=== PATIENT | female | born 2000 | race African-American/Black ===

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

== ENCOUNTER 2025-03-15 17:22 | Observation (INO) | payer BC, SELFPAY ==
[2025-03-15] VITALS (18 sets, daily range): BP systolic 117–137; BP diastolic 65–90; PULSE 97–115; RESP 9–27; TEMP 36.2–37.1; O2SAT 98–100
--- OUTSIDE RECORDS SUMMARY | 2025-03-15 17:25 | XMS_ITS | Encounter Summary ---
Author Organization [facility] Address [address] [place] [address] Care Team Providers Care Railway Station Manager Name Role Phone Pcp Outside [facility], Unknown Primary Care Provider U Beatriz Lr MD Unavailable Mini Siegel DO Primary Care Provider [phone] Encounter Details Date Type Department Care Team (Late st Contact Info) Description 11/19/2020 Mobile [facility] [address] [place] [phone] Beatriz Gill MD [address] [place] [address] Social History Tobacco Use Types Packs/Day Years Used Date Smoking Tobacco: Never Smokeless Tobacco: Never PHQ-2 Answer Date Recorded PHQ-2 Score 0 05/27/2020 Inadequate Housing Answer Date Recorded Social Determinants: Housing (Overall Score Help er) 0 07/10/2019 Comments Unknown Sex and Gender Information Value Date Recorded Sex Assigned at Not on file Legal Sex Female 8:27 PM CDT Gender Identity Not on file Sexual Orientation Not on file COVID-19 Exposure Response Date Recorded In the last month, have you been in contact with someone who was confirmed or suspected to have Coronavirus / COVID-19? No / Unsure 11/19/2020 12:59 AM PERLITE GRINDER documented as of this encounter Miscellaneous Notes * Progress Notes - Mobile - Beatriz Gill MD - 11/19/2020 12:12 AM CST Epic page received regarding patient???s hemoglobin of 6.6. Patient was seen in office today for menorrhagia. Called mom to discuss and recommended going to ED for transfusion. Mom agreeable. ITE GRINDER documented in this encounter Plan of Treatment Upcoming Encounters Date Type Department Care Team (Late st Contact Info) Description 05/13/2025 12:40 PM CDT Office Visit [facility] [address] [place] [address] Mini Siegel DO [address] [place] [address] 06/12/2025 11:00 AM CDT Office Visit [facility] [place] [address] [place] [address] [place] [address] [address] documented as of this encounter Visit Diagnoses Not on filedocumented in this encounter Care Teams Railway Station Manager Relationship Specialty Start Date End Date Pcp Outside [facility], Unknown NO KNOWN ADDRESS ON FILE PCP - General 11/19/20 06/29/22 Mini Siegel DO [address] [place] [address] PCP - General Family Practice 06/30/22 Beatriz Gill MD [address] [place] [address] Family Practice 11/15/21 03/30/22 documented as of this encounter
--- OUTSIDE RECORDS SUMMARY | 2025-03-15 17:25 | XMS_ITS | Encounter Summary ---
Author Organization [facility] Address [address] [place] [address] Care Team Providers Care Brake Coupler Dinkey Name Role Phone Mini Siegel Primary Care Provider [phone] Encounter Details Date Type Department Care Team (Late st Contact Info) Description 05/18/2023 E-Advice [facility] [address] [place] [address] Mychart, Patient Portal lab results Social History Tobacco Use Types Packs/Day Years Used Date Smoking Tobacco: Never Smokeless Tobacco: Never Alcohol Use Standard Drinks/Week Comments Never 0 (1 standard drink = 0.6 oz pur e alcohol) PHQ-2 Answer Date Recorded Initial depression screening score: 0 05/16/2023 Exercise Vital Sign Answer Date Recorde d On average, how many days pe r week do you engage in moderate to strenuous exercise (like a brisk walk)? 0 days 01/27/2021 On average, how many minutes do you engage in exercise at this level? 0 min 01/27/2021 PRAPARE - Transportation Answer Date Re corded In the past 12 months, has l ack of transportation kept you from medical appointments or from getting medications? No 01/2021 In the past 12 months, has l ack of transportation kept you from meetings, work, or from getting things needed for daily living? No 01/27/2021 Inadequate Housing Answer Date Recorded Social Determinants: Housing (Overall Score Help er) 0 07/10/2019 Sexually Active Control Partners Comments Never None Comments No Sex and Gender Information Value Date Recorded Sex Assigned at Not on file Legal Sex Female 8:27 PM CDT Gender Identity Not on file Sexual Orientation Not on file documented as of this encounter Plan of Treatment Upcoming Encounters Date Type Department Care Team (Late st Contact Info) Description 05/13/2025 12:40 PM CDT Office Visit [facility] [address] [place] [phone] Mini Siegel DO [address] [place] [address] 06/12/2025 11:00 AM CDT Office Visit [facility] [place] [address] [place] [phone] [place] [address] [place] [address] documented as of this encounter Visit Diagnoses Not on filedocumented in this encounter Care Teams Brake Coupler Dinkey Relationship Specialty Start Date End Date Mini Siegel DO [address] [place] [address] PCP - General Family Practice 06/30/22 documented as of this encounter
--- OUTSIDE RECORDS SUMMARY | 2025-03-15 17:25 | XMS_ITS | Encounter Summary ---
Author Organization [facility] Address [address] [place] [address] Care Team Providers Care Canal Tender Name Role Phone Mini Siegel Primary Care Provider [phone] Encounter Details Date Type Department Care Team (Late st Contact Info) Description 05/25/2023 E-Advice [facility] [address] [address] [email or web address], Patient Portal Xray result Social History Tobacco Use Types Packs/Day Years [...] PM CDT Office Visit [facility] [address] [place] [phone] Mini Siegel DO [address] [place] [address] 06/12/2025 11:00 AM CDT Office Visit [facility] [place] [address] [place] [phone] [place] [address] [place] [address] documented as of this encounter Visit Diagnoses Not on filedocumented in this encounter Care Teams Canal Tender Relationship Specialty Start Date End Date Mini Siegel DO [address] [place] [address] PCP - General Family Practice 06/30/22 documented as of this encounter
--- OUTSIDE RECORDS SUMMARY | 2025-03-15 17:25 | XMS_ITS | Referral Summary ---
Author Organization [facility] Address [address] [place] [address] Care Team Providers Care Board Certified Family Physician Name Role Phone Mini Siegel Primary Care Provider [phone] Allergies No known active allergies Medications Ferrous Sulfate (Iron) 325 (65 Fe) MG Tab Active Active Problems Problem Noted Date Diagnosed Date Dysuria 11/15/2021 Acanthosis nigricans 11/15/2021 Immunity status testing 04/28/2021 Assessment & Plan (04/28/2021 4:15 PM CDT): - unknown if she received her second MMRV, will obtain immunity status, If not immune then we will give her a second MMRV Iron deficiency anemia due to chronic blood loss 01/11/2021 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 Iron deficiency anemia 12/29/2020 Assessment & Plan (12/29/2020 10:14 AM PAINT LINE PRODUCTION SUPERVISOR): - continue iron supplementation - will recheck levels today Menorrhagia with irregular cycle 11/18/2020 Assessment & Plan (12/29/2020 10:15 AM PAINT LINE PRODUCTION SUPERVISOR): - discussed starting provera/OCP, however, with FHX of blood clots will hold off until seen by heme Assessment & Plan (11/18/2020 1:51 PM PAINT LINE PRODUCTION SUPERVISOR): - only two abnormal periods, however, will obtain blood work as patient will need blood drawn for CBC and iron labs - mom with h/o lupus leading to DVT and PE, will obtain anticoagulants and obtain VWF panel given heavy periods and easy bleeding - follow up in 1 months after next period, if menorrhagia continues, will consider starting provera - Medical compliance with plan discussed and risks of non-compliance reviewed. Patient education completed on disease process, etiology & prognosis. Return to clinic as clinically indicated (worsening or new symptoms) as discussed with patient who verbalized understanding of & agreement with the plan Family history of blood clots 11/18/2020 Assessment & Plan (11/18/2020 1:51 PM PAINT LINE PRODUCTION SUPERVISOR): - Medical compliance with plan discussed and risks of non-compliance reviewed. Patient education completed on disease process, etiology & prognosis. Return to clinic as clinically indicated (worsening or new symptoms) as discussed with patient who verbalized understanding of & agreement with the plan Immunizations Immunization Administration Dates Next Due COVNodejitsu 12Y+ (Requires Dilution) 03/26/2021 ,03/05/2021 DTaP 11/07/2003, 3,04/29/2003,02/25 HIB Hep B 10/29/2003,10/17/2003 HIB, Unspecified Formulation 08/08/2003,06/09/20 03,03/27/2003 HPV 9-Valent 11/15/2021,07/09/2021,04/28/2021 Hep B, adolescent or pediatric 06/09/2003,2002 IPV 08/08/2003,04/29/2003,02/25/2003 MMR 01/17/2004 Meningococcal Conjugate MCV4O 04/28/2021 Meningococcal Conjugate MCV4 P (Menactra) 06/17/2014 Pneumococcal Conjugate 7 Valent 11/07/20 03,10/28/2003,10/17/2003,08/08 Tdap 06/17/2014 Varicella 12/16/2003 Social History Tobacco Use Types Packs/Day Years Used Date Smoking Tobacco: Never Smokeless Tobacco: Never Tobacco Cessation:Counseling Given: Not Answered Alcohol Use Standard Drinks/Week Comments Never 0 (1 standard drink = 0.6 oz pur e alcohol) PHQ-2 Answer Date Recorded Initial depression screening score: 0 07/08/2024 Exercise Vital Sign Answer Date Recorde d [...] on file Sexual Orientation Not on file Last Filed Vital Signs Vital Sign Reading Time Taken Comments Blood Pressure 113/77 08/02/2024 3:00 PM CDT Pulse 93 08/02/2024 3:00 PM CDT Temperature 37.1 C (98.8 F) 08/02/2024 3:00 PM CDT Respiratory Rate 16 08/02/2024 3:00 PM CDT Oxygen Saturation 100% 08/02/2024 3:00 PM CDT Inhaled Oxygen Concentration - - Weight 79.1 kg (174 lb 6.1 oz) 07/22/2023 7:00 A M CDT Height 152.4 cm (5') 06/27/2023 3:00 PM CDT Body Mass Index - - Plan of Treatment Upcoming Encounters Date Type Department Care Team (Late st Contact Info) Description 05/13/2025 12:40 PM CDT Office Visit [facility] [address] [place] [phone] Mini Siegel DO [address] [place] [address] 06/12/2025 11:00 AM CDT Office Visit [facility] [place] [address] [place] [phone] [place] [address] [place] [address] Procedures Procedure Name Priority Date/Time Associated Diagnosis Comments CHLAMYDIA/GONORRHEA BY NUCLEIC ACID AMPLIFICATION Routine 05/16/2023 12:50 PM CDT Routine screening for STI (sexually transmitted infection) from Last 3 Months or Most Recently Relevant to Health Maintenance Results * Chlamydia/Gonorrhea by Nucleic Acid Amplification (05/16/2023 12:50 PM CDT) Chlamydia trachomatis by Nucleic Acid Amplification Negative Negative [facility] 05/17/2023 6:41 PM CDT [facility] Neisseria gonorrhoeae by Nucleic Acid Amplification Negative Negative [facility] 05/17/2023 6:41 PM CDT [facility] Disclaimer The expected normal reference range is negative. Positive results are reported to the [facility] Department of Public Health. The Aptima Combo 2 Assay is not intended for the evaluation of suspected sexual abuse or for other medico-legal indications, nor has it been evaluated in adolescents less than 14 years of age. In these scenarios, and in clinical settings where the prevalence of infection is low, confirmatory testing on positive results is recommended. [facility] 05/17/2023 6:41 PM CDT [facility] Urine URINE SPECIMEN / Unknown 05/16/2023 12:50 PM CDT 05/16/2023 10:51 PM CDT us Claritza Urbano CNP [facility] DIAGN ORD Fin al Result [facility] [address] [place] [address] from Last 3 Months or Most Recently Relevant to Health Maintenance Insurance [id number] [place] [address] [employer] Care Teams Board Certified Family Physician Relationship Specialty Start Date End Date Mini Siegel DO [address] [place] [address] PCP - General Family Practice 06/30/22
--- OUTSIDE RECORDS SUMMARY | 2025-03-15 17:25 | XMS_ITS | Encounter Summary ---
Author Organization [facility] Address [address] [place] [address] Care Team Providers Care Director Of Conservation Name Role Phone Pcp, No Primary Care Provider Barby Alexander MD Primary Care Provider [phone] Pcp Outside [facility], Unknown Primary Care Provider Beatriz Neri MD Unavailable Mini Siegel DO Primary Care Provider [phone] Encounter Details Date Type Department Care Team (Late Contact Info) Description 05/25/2020 Telephone [facility] [address] [place] [address] Group, [facility] [address] [place] [address] Social History Tobacco Use Types Packs/Day Years Used Date Smoking Tobacco: Never Assessed PHQ-2 Answer Date Recorded PHQ-2 Score 0 [...] Encounters Date Type Department Care Team (Late Contact Info) Description 05/13/2025 12:40 PM CDT Office Visit [facility] [address] [place] [address] Mini Siegel DO [address] [place] [address] 06/12/2025 11:00 AM CDT Office Visit [facility] [place] [address] [place] [address] [place] [address] [place] [address] documented as of this encounter Visit Diagnoses Not on filedocumented in this encounter Care Teams Director Of Conservation Relationship Specialty Start Date End Date Pcp, No PCP - General 05/27/20 11/15/20 Barby Manrique MD [address] [place] [address] PCP - General Pediatrics 11/16/20 11/18/20 Pcp Outside [facility], Unknown NO KNOWN ADDRESS ON FILE PCP - General 11/19/20 06/29/22 Mini Siegel DO [address] [place] [address] PCP - General Family Practice 06/30/22 Beatriz Gill MD [address] [place] [address] Family Practice 11/15/21 03/30/22 documented as of this encounter
--- OUTSIDE RECORDS SUMMARY | 2025-03-15 17:25 | XMS_ITS | Clinical Summary ---
Author Organization [facility] Address [address] [place] [address] Care Team Providers Care Manager Title Name Role Phone Unavailable Primary Care Provider Unavailabl e Social History Tobacco Use Types Packs/Day Years Used Date Smoking Tobacco: Never Assessed Comments Unknown Sex and Gender Information Value Date Recorded Sex Assigned at Not on file Legal Sex Female 4:24 PM NITRO MAN Gender Identity Not on file Sexual Orientation Not on file Plan of Treatment Health Maintenance Due Date Last Done Comments CERVICAL CANCER SCREENING 2002 HEPATITIS C SCREENING 2002 TDAP/TD VACCINE (1 - Tdap) 2013 DEPRESSION SCREENING 2014 HIV SCREENING 2017 HPV VACCINE (1 - 3-dose series) 2017 COVID-19 VACCINE (3 - 2023-2 5 season) 2024 03/26/2021, 03/05/2021 INFLUENZA VACCINE (Season Ended) 2025 ZOSTER SERIES VACCINE (1 of 2) 2052 Adult RSV VACCINE (1 - 1-dos e 75+ series) 2077 Pneumococcal Vaccine: Childhood and At-Risk Adult <65 yo Series Aged Out No longer eligible b ased on patient's age to complete this topic
--- OUTSIDE RECORDS SUMMARY | 2025-03-15 17:25 | XMS_ITS | Clinical Summary ---
Author Organization [facility] Address [address] [place] [address] Care Team Providers Care Grinding Machine Operator Automatic Name Role Phone Mini Siegel Primary Care Provider [phone] Allergies No known active allergies Medications Ferrous [...] 12/29/2020 Assessment & Plan (12/29/2020 10:13 AM SUPERVISOR ASPHALT PAVING): - will send patient to heme/onc given fhx, menorrhagia, and FREDIS - red flags discussed, patient and mom express understanding. Iron deficiency anemia 12/29/2020 Assessment & Plan (12/29/2020 10:14 AM SUPERVISOR ASPHALT PAVING): - continue iron supplementation - will recheck levels today Menorrhagia with irregular cycle 11/18/2020 Assessment & Plan (12/29/2020 10:15 AM SUPERVISOR ASPHALT PAVING): - discussed starting provera/OCP, however, with FHX of blood clots will hold off until seen by heme Assessment & Plan (11/18/2020 1:51 PM SUPERVISOR ASPHALT PAVING): - only two abnormal periods, however, will [...] 11/18/2020 Assessment & Plan (11/18/2020 1:51 PM SUPERVISOR ASPHALT PAVING): - Medical compliance with plan discussed and risks of non-compliance reviewed. Patient education completed on disease process, etiology & prognosis. Return to clinic as clinically indicated (worsening or new symptoms) as discussed with patient who verbalized understanding of & agreement with the plan Immunizations Immunization Administration Dates Next Due COVSimulation Sciences 12Y+ (Requires Dilution) 03/26/2021 ,03/05/2021 DTaP 11/07/2003, 3,04/29/2003,02/25 HIB Hep B 10/29/2003,10/17/2003 HIB, Unspecified Formulation 08/08/2003,06/09/20 03,03/27/2003 HPV 9-Valent 11/15/2021,07/09/2021,04/28/2021 Hep B, adolescent or pediatric 06/09/2003,2002 IPV 08/08/2003,04/29/2003,02/25/2003 MMR 01/17/2004 Meningococcal Conjugate MCV4O 04/28/2021 Meningococcal Conjugate MCV4 P (Menactra) 06/17/2014 Pneumococcal Conjugate 7 Valent 11/07/20 03,10/28/2003,10/17/2003,08/08 Tdap 06/17/2014 Varicella 12/16/2003 Surgical History Surgery Date Site/Laterality Comments NO PAST SURGERIES Medical History Medical History Date Comments Iron deficiency anemia Blood transfusion without reported diagnosis Family History Medical History Relation Comments Patient is unaware of any medical problems Fathe r Clotting Disorder Mother Systemic Lupus Erythematosus Mother Relation Status Comments Father Mother Social History Tobacco Use Types Packs/Day Years [...] on file Sexual Orientation Not on file Obstetrics History Para Term AB IAB SAB Ectopic Molar Multiple Living Live Births 0 0 0 0 0 0 0 0 0 0 0 0 Last Filed Vital Signs Vital Sign Reading [...] PM CDT Office Visit [facility] [place] [address] [place] [phone] Mini Siegel DO [address] [place] [address] 06/12/2025 11:00 AM CDT Office Visit [facility] [place] [address] [place] [address] [place] [address] [place], [place] [address] Health Maintenance Due Date Last Done Comments Meningococcal Serogroup B Vaccine (1 of 2 - Standard) 2018 Cervical Cancer Screening 2023 Pap Smear 2023 Chlamydia and Gonorrhea Screening (if sexually active) 05/16/2024 05/16/2023, 11/15/2021 DTaP/Tdap/Td Vaccine (5 - Td or Tdap) 06/17/2024 06/17/2014, 11/07/2003, 08/08/2003, Additional history exists COVID-19 Vaccine ( season) 2024 03/26/2021, 03/05/2021 Depression Screening 07/08/2025 07/08/2024 Influenza Vaccine (Season Ended) 2025 Hepatitis B Vaccine Completed 10/29/2003, 10/17/2003, 06/09/2003, Additional history exists Pneumococcal Vaccine 0-49 Aged Out 2002, 10/28/2003, 10/17/2003, Additional history exists No longer eligible based on patient's age to complete this topic Meningococcal Vaccine Completed 04/28/2021, 014 HPV Vaccine Completed 11/15/2021, 06/27, 04/28/2021 Hepatitis A Vaccine Aged Out No longe r eligible based on patient's age to complete this topic Procedures Procedure Name Priority Date/Time Associated Diagnosis [...] 6:41 PM CDT [place] [facility] Disclaimer The expected normal reference range is negative. Positive results are reported to the [facility] Department of Public Health. The Aptima Combo [...] al Result ACL [place] [facility] [address] [place] [address] from Last 3 Months or Most Recently Relevant to Health Maintenance Insurance [employer]ER[employer] Care Teams Grinding Machine Operator Automatic Relationship Specialty Start Date End Date Mini Siegel DO [address] [place] [address] PCP - General Family Practice 06/30/22
--- NOTE | 2025-03-15 18:50 | PC.NURSE ---
Patient states she had her regular period at the end of december and stopped bleeding but a few days later started bleeding again and it has been ongoing since.
--- OUTSIDE RECORDS SUMMARY | 2025-03-15 19:45 | XMS_ITS | Referral Summary ---
Author Organization [facility] Address [address] [place] [address] Care Team Providers Care Associate Veterinarian Name Role Phone Mini Siegel Primary Care Provider [phone] Allergies No known active allergies Medications Ferrous [...] 12/29/2020 Assessment & Plan (12/29/2020 10:13 AM CIVIL ENGINEER HELPER): - will send patient to heme/onc given fhx, menorrhagia, and FREDIS - red flags discussed, patient and mom express understanding. Iron deficiency anemia 12/29/2020 Assessment & Plan (12/29/2020 10:14 AM CIVIL ENGINEER HELPER): - continue iron supplementation - will recheck levels today Menorrhagia with irregular cycle 11/18/2020 Assessment & Plan (12/29/2020 10:15 AM CIVIL ENGINEER HELPER): - discussed starting provera/OCP, however, with FHX of blood clots will hold off until seen by heme Assessment & Plan (11/18/2020 1:51 PM CIVIL ENGINEER HELPER): - only two abnormal periods, however, will [...] 11/18/2020 Assessment & Plan (11/18/2020 1:51 PM CIVIL ENGINEER HELPER): - Medical compliance with plan discussed and risks of non-compliance reviewed. Patient education completed on disease process, etiology & prognosis. Return to clinic as clinically indicated (worsening or new symptoms) as discussed with patient who verbalized understanding of & agreement with the plan Immunizations Immunization Administration Dates Next Due COVAccelerate Mobile Apps 12Y+ (Requires Dilution) 03/26/2021 ,03/05/2021 DTaP 11/07/2003, [...] PM CDT Office Visit [facility] [place] [address] [place] [phone] Mini Siegel DO [address] [place] [address] 06/12/2025 11:00 AM CDT Office Visit [facility] [place] [address] [place] [phone] [place] [address] [place] [address] Procedures Procedure Name Priority Date/Time Associated Diagnosis [...] - PNTH4 05/17/2023 6:[address] CENTRAL LAB Disclaimer The expected normal reference range is negative. Positive results are reported to the [facility] Department of Public Health. The Aptima Combo [...] al Result ACL [place] [facility] [address] [place] [address] from Last 3 Months or Most Recently Relevant to Health Maintenance Insurance [id number] [place] [address] Jugo Jugo Care Teams Associate Veterinarian Relationship Specialty Start Date End Date Mini Siegel DO [address] [place] [address] PCP - General Family Practice 06/30/22
--- OUTSIDE RECORDS SUMMARY | 2025-03-15 19:45 | XMS_ITS | Encounter Summary ---
Author Organization [facility] Address [address] [place] [address] Care Team Providers Care Equal Opportunity Officer Name Role Phone Pcp Outside [facility], Unknown Primary Care Provider U Beatriz Lr MD Unavailable Mini Siegel DO Primary Care Provider [phone] Encounter Details Date Type Department Care Team (Late st Contact Info) Description 11/19/2020 Mobile [facility] [place] [address] [place] [phone] Beatriz Gill MD [address] [place] [address] Social History Tobacco Use Types [...] COVID-19? No / Unsure 11/19/2020 12:59 AM LINE ASSEMBLER documented as of this encounter Miscellaneous Notes * Progress Notes - Mobile - Beatriz Gill MD - 11/19/2020 12:12 AM CST Epic page received regarding patient???s hemoglobin of 6.6. Patient was seen in office today for menorrhagia. Called mom to discuss and recommended going to ED for transfusion. Mom agreeable. ASSEMBLER documented in this encounter Plan of Treatment Upcoming Encounters Date Type Department Care Team (Late st Contact Info) Description 05/13/2025 12:40 PM CDT Office Visit [facility] [place] [address] [place] [address] Mini Siegel DO [address] [place] [address] 06/12/2025 11:00 AM CDT Office Visit [facility] [employer] [address] [place] [address] [place] [address] [place] [address] documented as of this encounter Visit Diagnoses Not on filedocumented in this encounter Care Teams Equal Opportunity Officer Relationship Specialty Start Date End Date Pcp Outside [facility], Unknown NO KNOWN ADDRESS ON FILE PCP - General 11/19/20 06/29/22 Mini Siegel DO [address] [place] [address] PCP - General Family Practice 06/30/22 Beatriz Gill MD [address] [place] [address] Family Practice 11/15/21 03/30/22 documented as of this encounter
--- OUTSIDE RECORDS SUMMARY | 2025-03-15 19:45 | XMS_ITS | Clinical Summary ---
Author Organization [facility] Address 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
--- OUTSIDE RECORDS SUMMARY | 2025-03-15 19:45 | XMS_ITS | Clinical Summary ---
Author Organization [facility] Address [address] [place] [address] Care Team Providers Care Lead Electrician Name Role Phone Mini Siegel Primary Care Provider [phone] Allergies No known active allergies Medications Ferrous [...] 12/29/2020 Assessment & Plan (12/29/2020 10:13 AM CROP PICKER): - will send patient to heme/onc given fhx, menorrhagia, and FREDIS - red flags discussed, patient and mom express understanding. Iron deficiency anemia 12/29/2020 Assessment & Plan (12/29/2020 10:14 AM CROP PICKER): - continue iron supplementation - will recheck levels today Menorrhagia with irregular cycle 11/18/2020 Assessment & Plan (12/29/2020 10:15 AM CROP PICKER): - discussed starting provera/OCP, however, with FHX of blood clots will hold off until seen by heme Assessment & Plan (11/18/2020 1:51 PM CROP PICKER): - only two abnormal periods, however, will [...] 11/18/2020 Assessment & Plan (11/18/2020 1:51 PM CROP PICKER): - Medical compliance with plan discussed and risks of non-compliance reviewed. Patient education completed on disease process, etiology & prognosis. Return to clinic as clinically indicated (worsening or new symptoms) as discussed with patient who verbalized understanding of & agreement with the plan Immunizations Immunization Administration Dates Next Due COVPathable 12Y+ (Requires Dilution) 03/26/2021 ,03/05/2021 DTaP 11/07/2003, [...] PM CDT Office Visit [facility] [place] [address] [place] [phone] Mini Siegel DO [address] [place] [address] 06/12/2025 11:00 AM CDT Office Visit [facility] [place] [address] [place] [address] [place] [address] [place], [place] [address] Health Maintenance Due Date Last Done Comments [...] negative. Positive results are reported to the [facility] Department of Public Health. The Aptima [...] al Result ACL [place] [facility] [address] [place] [address] from Last 3 Months or Most Recently Relevant to Health Maintenance Insurance Proenza Sch[employer]er [employer]OSS COMMERCIAL [facility] Address: [address] [place] [address] [employer] Schouer [facility] Address: [address] [place] [address] [employer] [facility] Address: [address] [place] [address] Care Teams Lead Electrician Relationship Specialty Start Date End Date Mini Siegel DO [address] [place] [address] PCP - General Family Practice 06/30/22
--- OUTSIDE RECORDS SUMMARY | 2025-03-15 19:45 | XMS_ITS | Encounter Summary ---
Author Organization [facility] Address [address] [place] [address] Care Team Providers Care Assurance Engineer Name Role Phone Mini Siegel Primary Care Provider [phone] Encounter Details Date Type Department Care Team (Late st Contact Info) Description 05/25/2023 E-Advice [facility] [place] [address] [phone] [employer], Patient Portal Xray result Social History Tobacco [...] PM CDT Office Visit [facility] [place] [address] [place] [phone] Mini Siegel DO [address] [place] [address] 06/12/2025 11:00 AM CDT Office Visit [facility] [place] [address] [place] [phone] [place] [address] [place] [address] documented as of this encounter Visit Diagnoses Not on filedocumented in this encounter Care Teams Assurance Engineer Relationship Specialty Start Date End Date Mini Siegel DO [address] [place] [address] [place] [address] PCP - General Family Practice 06/30/22 documented as of this encounter
--- OUTSIDE RECORDS SUMMARY | 2025-03-15 19:45 | XMS_ITS | Encounter Summary ---
Author Organization [facility] Address [address] [place] [address] Care Team Providers Care Industrial Gas Fitter Helper Name Role Phone Mini Siegel Primary Care Provider [phone] Encounter Details Date Type Department Care Team (Late st Contact Info) Description 05/18/2023 E-Advice [facility] [place] [address] [place] [address] Mychart, Patient Portal lab results [...] PM CDT Office Visit [facility] [place] [address] [place] [phone] Mini Siegel DO [address] [place] [address] 06/12/2025 11:00 AM CDT Office Visit [facility] [place] [address] [phone] [place] [address] [place] [address] documented as of this encounter Visit Diagnoses Not on filedocumented in this encounter Care Teams Industrial Gas Fitter Helper Relationship Specialty Start Date End Date Mini Siegel DO [address] [place] [address] PCP - General Family Practice 06/30/22 documented as of this encounter
--- OUTSIDE RECORDS SUMMARY | 2025-03-15 19:45 | XMS_ITS | Encounter Summary ---
Author Organization [facility] Address [address] [place] [address] Care Team Providers Care Bacteriology Technician Name Role Phone Pcp, No Primary Care Provider Barby Alexander MD Primary Care Provider [phone] Pcp Outside [facility], Unknown Primary Care Provider Beatriz Neri MD Unavailable Mini Siegel DO Primary Care Provider [phone] Encounter Details Date Type Department Care Team (Late Contact Info) Description 05/25/2020 Telephone [facility] [address] [place] [address] Group, [facility] [address] [place] [address] Social History Tobacco Use Types Packs/Day Years [...] 12:40 PM CDT Office Visit [facility] [address] [place] [phone] Mini Siegel DO [address] [place] [address] [place] [address] 06/12/2025 11:00 AM CDT Office Visit [facility] [place] [address] [place] [address] [place] [address] [place] [address] documented as of this encounter Visit Diagnoses Not on filedocumented in this encounter Care Teams Bacteriology Technician Relationship Specialty Start Date End Date Pcp, No PCP - General 05/27/20 11/15/20 Barby Manrique MD [address] [place] [address] PCP - General Pediatrics 11/16/20 11/18/20 Pcp Outside [facility], Unknown NO KNOWN ADDRESS ON FILE PCP - General 11/19/20 06/29/22 Mini Siegel DO [address] [place] [address] PCP - General Family Practice 06/30/22 Beatriz Gill MD [address] [place] [address] Family Practice 11/15/21 03/30/22 documented as of this encounter
[2025-03-15 20:07] LABS: Basophils Absolute Auto 0.1 K/mm3 (0.0-0.1); Basophils Percent Auto 0.4 % (0.2-1.2); Eosinophils Absolute Auto 0.1 K/mm3 (0-0.3); Eosinophils Percent Auto 0.6 % (0-4.4); Hematocrit 22.3 % (37.0-47.0); Immature Granulocyte Absolute 0.05 K/mm3 (0.00-0.031); Immature Granulocyte Percent A 0.4 % (0-0.5); Lymphocytes Percent Auto 23.3 % (18.3-44.2); Mean Corpuscular HGB Conc 29.1 g/dl (32-36); Mean Corpuscular Volume 68.6 fl (80-100); Mean Platelet Volume 9.9 fl (7.4-10.4); Monocytes Absolute Auto 0.6 K/mm3 (0.1-0.6); Monocytes Percent Auto 4.7 % (2.6-8.5); Neutrophils Absolute Auto 9.4 K/mm3 (1.3-6.7); Neutrophils Percent Auto 70.6 % (45.5-73.1); Platelet Count Result 430 k/mm3 (150-375); Red Blood Count 3.25 M/mm3 (4.2-5.4); Red Cell Distribution Width 18.3 % (11.5-14.5); White Blood Count 13.3 K/mm3 (4.5-10.0)
[2025-03-15 20:17] LABS: Alanine Aminotransferase 14 U/L (6-35); Albumin Level 4.7 g/dL (3.5-5.1); Alkaline Phosphatase 101 U/L (38-126); Anion Gap 11 mmol/L (4-12); Aspartate Amino Transferase 21 U/L (14-36); Bilirubin,Total 0.2 mg/dL (0.2-1.3); Blood Urea Nitrogen 10 mg/dL (7-17); Calcium 9.5 mg/dL (8.4-10.2); Carbon Dioxide 25 mmol/L (22-30); Chloride 103 mmol/L (98-107); Estimated Glomerular Filt Rate > 60; Glucose 101 mg/dL (65-110); Magnesium 1.8 mg/dL (1.6-2.3); Potassium 3.9 mmol/L (3.4-5.0); Sodium 139 mmol/L (137-145)
[2025-03-15 20:25] LABS: Hemoglobin 6.5 g/dL (12.0-15.0)
[2025-03-15 20:27] LABS: Giant Platelets Present; Hypochromasia 2+; Large Platelets Present; Microcytosis 2+ (NORMAL); Platelet Estimate Adequate (Adequate); Target Cells 1+
[2025-03-15 20:28] LABS: Schistocytes Rare
--- NOTE | 2025-03-15 21:36 | ED_ITS ---
HPI - Female Genitourinary General Chief complaint: ENTRY LEVEL MANAGEMENT <Jo-Ann Pickett PA-C - Last Filed: 03/16/25 00:18> Stated complaint: Prolonged menses-feeling anemic <DANKIA Hidalgo Last Filed: 03/16/25 00:18> Time Seen by Provider: 03/15/25 19:20 <Jo-Ann Pickett PA-C - Last Filed: 03/16/25 00:18> Source: patient <DANIKA Hidalgo Last Filed: 03/16/25 00:18> Mode of arrival: ambulatory <DANIKA Hidalgo Last Filed: 03/16/25 00:18> Limitations: no limitations <DANIKA Hidalgo Last Filed: 03/16/25 00:18> History of Present Illness HPI Narrative: Patient is a 24-year-old female who presents the ED with report of vaginal bleeding. Patient reports she typically has heavy cycles. She has had persistent bleeding since her cycle at the beginning of December. She states she has been persistently bleeding for the past 2 months. She has been passing large blood clots. Over the past couple days, she has been feeling lightheaded. Notes history of anemia, is on daily iron supplementation. Has required blood transfusions and iron transfusions in the past, last occurring about 1 year ago. Patient does not currently have an OBGYN, has previously followed with someone in [place], [place]. Residing here currently for college. Denies abdominal pain or cramping. Denies chest pain, shortness of breath. <Jo-Ann Pickett PA-C - Last Filed: 03/16/25 00:18> Related Data Home medications: Home Medications ?Medication ?Instructions ?Recorded ?Confirmed ?Last Taken ?Type No Home Medications 12/25/21 12/25/21 Unknown History <DANIKA Hidalgo Last Filed: 03/16/25 00:18> Allergies/Adverse reactions: Allergies Allergy/AdvReac Type Severity Reaction Status Date / Time No Known Allergies Allergy Verified 03/15/25 17:23 <DANIKA Hidalgo Last Filed: 03/16/25 00:18> Review of Systems 2 Review of Systems: All systems reviewed & are unremarkable except as noted in HPI. <Jo-Ann Pickett PA-C - Last Filed: 03/16/25 00:18> All systems reviewed & are unremarkable except as noted in HPI and below < Jo-Ann Pickett PA-C - Last Filed: 03/16/25 00:18> PMFSH Past Medical History Medical History: Medical History No active medical problems <Jo-Ann Pickett PA-C - Last Filed: 03/16/25 00:18> Social History Social History: Social History Smoking status: Never smoker <Jo-Ann Pickett PA-C - Last Filed: 03/16/25 00:18> Exam 2 Narrative: GENERAL: Well appearing, obese with BMI of 37.0, non-toxic, in no acute distress. HEAD: Normocephalic, atraumatic. RESPIRATORY: Airway patent, respirations nonlabored. Clear to auscultation bilaterally, no rales, rhonchi, wheezing. CARDIOVASCULAR: Borderline tachycardic with regular rhythm without murmurs, rubs, or gallops. ABDOMINAL: Soft, nontender, nondistended. Normoactive BS. PELVIC: Moderate to large amount of dark red vaginal blood in vaginal vault, difficult to clear field. Patient passing multiple large blood clots, about half dollar size. No significant CMT. No genital lesions. MUSCULOSKELETAL: Moves all extremities. No gross deformities. SKIN: Warm, dry, normal color. NEURO: A&O X3. Speech clear. PSYCHIATRIC: Appropriate mood and affect. Normal interaction. <Jo-Ann Pickett PA-C - Last Filed: 03/16/25 00:18> Course BASEBOARD HEATING INSTALLER/PA Physician Supervision For this patient encounter, I reviewed the BASEBOARD HEATING INSTALLER or PA documentation, treatment plan, and medical decision making and had [id number] time with this patient. I performed all aspects of the MDM as documented. <Tanner Mansfield MD - Last Filed: 03/16/25 03:41> Vital Signs Vital signs: Vital Signs Temperature 97.1 F L 03/15/25 17:32 Pulse Rate 115 H 03/15/25 17:32 Respiratory Rate 16 03/15/25 17:32 Blood Pressure 134/80 03/15/25 17:32 Pulse Oximetry 100 03/15/25 17:32 Temperature 98.7 F 03/16/25 02:35 Pulse Rate 100 03/16/25 02:35 Respiratory Rate 16 03/16/25 02:35 Blood Pressure 113/69 03/16/25 02:35 Pulse Oximetry 100 03/16/25 02:35 <Jo-Ann Pickett PA-C - Last Filed: 03/16/25 00:18> Vital Signs Temperature 97.1 F L 03/15/25 17:32 Pulse Rate 115 H 03/15/25 17:32 Respiratory Rate 16 03/15/25 17:32 Blood Pressure 134/80 03/15/25 17:32 Pulse Oximetry 100 03/15/25 17:32 Temperature 98.7 F 03/16/25 02:35 Pulse Rate 100 03/16/25 02:35 Respiratory Rate 16 03/16/25 02:35 Blood Pressure 113/69 03/16/25 02:35 Pulse Oximetry 100 03/16/25 02:35 <Tanner Mansfield MD - Last Filed: 03/16/25 03:41> MDM - Female Genitourinary MDM Narrative Medical decision making narrative: Patient presented to ED with heavy vaginal bleeding for the past 2 months. Began feeling lightheaded. Patient mildly tachycardic upon arrival, in no acute distress. History of anemia. Hemoglobin resulted today low at 6.5. Hematocrit 22.3. Microcytic with MCV of 68. Patient reports history of iron deficiency anemia, is on daily iron supplementation. Type and screen and anemia labs were ordered, will transfuse patient. Pelvic exam did show moderate amount of bleeding, large clots. Difficult to clear feel due to amount of bleeding. Will discuss with OB. Discussed case with Dr. Langford OBGYN electric distribution checker, agreed with plan for admission, serial H&Hs, blood transfusion, fluids, recommended TXA 1000 mg IV push q 8 hours. Anemia labs appear consistent with iron deficiency anemia, iron is low, TIBC elevated, ferritin low. Patient is in agreement with plan and need for admission. 1U PRBC transfusion ongoing. <Jo-Ann Pickett PA-C - Last Filed: 03/16/25 00:18> Medical Records Attestation: I reviewed the patient's medical records. <Jo-Ann Pickett PA-C - Last Filed: 03/16/25 00:18> Lab Data Attestation: I reviewed the patient's lab results. <Jo-Ann Pickett PA-C - Last Filed: 03/16/25 00:18> Result diagrams: 03/15/25 20:00 03/15/25 20:00 <Jo-Ann Pickett PA-C - Last Filed: 03/16/25 00:18> Labs: Lab Results 03/15/25 03/15/25 03/15/25 Range/Units 20:00 21:51 23:05 WBC 13.3 H (4.5-10.0) K/mm3 RBC 3.25 L (4.2-5.4) M/mm3 Hgb 6.5 L* D (12.0-15.0) g/dL Hct 22.3 L (37.0-47.0) % MCV 68.6 L (80-100) fl MCH 20.0 L (26-34) pg MCHC 29.1 L (32-36) g/dl RDW 18.3 H (11.5-14.5) % Plt Count 430 H (150-375) k/mm3 MPV 9.9 (7.4-10.4) fl Immature Gran % (Auto) 0.4 (0-0.5) % Neut % (Auto) 70.6 (45.5-73.1) % Lymph % (Auto) 23.3 (18.3-44.2) % [place] % (Auto) 4.7 (2.6-8.5) % Eos % (Auto) 0.6 (0-4.4) % Baso % (Auto) 0.4 (0.2-1.2) % Lymph # (Auto) 3.10 (0.9-3.2) K/mm3 [place] # (Auto) 0.6 (0.1-0.6) K/mm3 Eos # (Auto) 0.1 (0-0.3) K/mm3 Baso # (Auto) 0.1 (0.0-0.1) K/mm3 Abs Immat Gran (auto) 0.05 H (0.00-0.031) K/mm3 Absolute Neuts (auto) 9.4 H (1.3-6.7) K/mm3 Absolute Nucleated RBC 0.000 (0.0-0.012) K/mm3 Band Neutrophils % Not Reportable Nucleated RBC % 0.0 (0.0-0.2) % Platelet Estimate Adequate (Adequate) Large Platelets Present Giant Platelets Present Hypochromasia 2+ Microcytosis 2+ (NORMAL) Target Cells 1+ Schistocytes Rare Absolute Retic 0.07 (0.02-0.10) 10^6/uL Percent Retic 2.01 (0.7-4.3) % Immature Retic Fraction 34.5 H (3.0-15.9) % Retic Hgb Content 14.5 L (28.2-36.6) pg Sodium 139 (137-145) mmol/L Potassium 3.9 (3.4-5.0) mmol/L Chloride 103 (98-107) mmol/L Carbon Dioxide 25 (22-30) mmol/L Anion Gap 11 (4-12) mmol/L BUN 10 (7-17) mg/dL Creatinine 0.67 L (0.7-1.0) mg/dL Estim Creat Clear Calc Not Reportable Estimated GFR > 60 (59 - ) Glucose 101 (65-110) mg/dL Calcium 9.5 (8.4-10.2) mg/dL Magnesium 1.8 (1.6-2.3) mg/dL Iron 24 L (37-170) ug/dL TIBC 537 H (261-462) ug/dL % Saturation 4 L (20-50) % Transferrin 394 H (206-381) mg/dL Ferritin 3.21 L (6.24-137) ng/mL Total Bilirubin 0.2 (0.2-1.3) mg/dL AST 21 (14-36) U/L ALT 14 (6-35) U/L Alkaline Phosphatase 101 (38-126) U/L Lactate Dehydrogenase 183 (120-246) U/L Total Protein 8.0 (6.3-8.2) g/dL Albumin 4.7 (3.5-5.1) g/dL TSH (Reflex) 1.010 (0.465-4.68) uIU/mL Urine Color Light red H (Yellow) Urine Appearance Cloudy H (Clear) Urine pH 6.0 (5.0-9.0) Ur Specific [place] 1.012 (1.001-1.035) Urine Protein 3+ H (Negative) mg/dL Urine Glucose (UA) Negative (Negative) mg/dL Urine Ketones Negative (Negative) mg/dL Ur Blood (Man) 3+ H (Negative) Urine Nitrate Negative (Negative) Urine Bilirubin Negative (Negative) Urine Urobilinogen 0.2 (<2.0) mg/dL Add Ur Microanalysis Reviewed Leukocyte Esterase Rfl Negative (Negative) KAMI/UL Urine RBC >100 H (0-2) /hpf Urine WBC 21-50 H (0-3) /hpf Ur Squamous Epith Cells Moderate (Few) /hpf Urine Bacteria Rare /hpf Urine Casts 6-10 POC Urine HCG, Qual (Negative) Blood Type A Positive Antibody Screen Negative Crossmatch See Detail 03/15/25 Range/Units 23:09 WBC (4.5-10.0) K/mm3 RBC (4.2-5.4) M/mm3 Hgb (12.0-15.0) g/dL Hct (37.0-47.0) % MCV (80-100) fl MCH (26-34) pg MCHC (32-36) g/dl RDW (11.5-14.5) % Plt Count (150-375) k/mm3 MPV (7.4-10.4) fl Immature Gran % (Auto) (0-0.5) % Neut % (Auto) (45.5-73.1) % Lymph % (Auto) (18.3-44.2) % [place] % (Auto) (2.6-8.5) % Eos % (Auto) (0-4.4) % Baso % (Auto) (0.2-1.2) % Lymph # (Auto) (0.9-3.2) K/mm3 [place] # (Auto) (0.1-0.6) K/mm3 Eos # (Auto) (0-0.3) K/mm3 Baso # (Auto) (0.0-0.1) K/mm3 Abs Immat Gran (auto) (0.00-0.031) K/mm3 Absolute Neuts (auto) (1.3-6.7) K/mm3 Absolute Nucleated RBC (0.0-0.012) K/mm3 Band Neutrophils % Nucleated RBC % (0.0-0.2) % Platelet Estimate (Adequate) Large Platelets Giant Platelets Hypochromasia Microcytosis (NORMAL) Target Cells Schistocytes Absolute Retic (0.02-0.10) 10^6/uL Percent Retic (0.7-4.3) % Immature Retic Fraction (3.0-15.9) % Retic Hgb Content (28.2-36.6) pg Sodium (137-145) mmol/L Potassium (3.4-5.0) mmol/L Chloride (98-107) mmol/L Carbon Dioxide (22-30) mmol/L Anion Gap (4-12) mmol/L BUN (7-17) mg/dL Creatinine (0.7-1.0) mg/dL Estim Creat Clear Calc Estimated GFR (59 - ) Glucose (65-110) mg/dL Calcium (8.4-10.2) mg/dL Magnesium (1.6-2.3) mg/dL Iron (37-170) ug/dL TIBC (261-462) ug/dL % Saturation (20-50) % Transferrin (206-381) mg/dL Ferritin (6.24-137) ng/mL Total Bilirubin (0.2-1.3) mg/dL AST (14-36) U/L ALT (6-35) U/L Alkaline Phosphatase (38-126) U/L Lactate Dehydrogenase (120-246) U/L Total Protein (6.3-8.2) g/dL Albumin (3.5-5.1) g/dL TSH (Reflex) (0.465-4.68) uIU/mL Urine Color (Yellow) Urine Appearance (Clear) Urine pH (5.0-9.0) Ur Specific [place] (1.001-1.035) Urine Protein (Negative) mg/dL Urine Glucose (UA) (Negative) mg/dL Urine Ketones (Negative) mg/dL Ur Blood (Man) (Negative) Urine Nitrate (Negative) Urine Bilirubin (Negative) Urine Urobilinogen (<2.0) mg/dL Add Ur Microanalysis Leukocyte Esterase Rfl (Negative) KAMI/UL Urine RBC (0-2) /hpf Urine WBC (0-3) /hpf Ur Squamous Epith Cells (Few) /hpf Urine Bacteria /hpf Urine Casts POC Urine HCG, Qual Negative (Negative) Blood Type Antibody Screen Crossmatch <Jo-Ann Pickett PA-C - Last Filed: 03/16/25 00:18> Lab Results 03/15/25 03/15/25 03/15/25 Range/Units 20:00 21:51 23:05 WBC 13.3 H (4.5-10.0) K/mm3 RBC 3.25 L (4.2-5.4) M/mm3 Hgb 6.5 L* D (12.0-15.0) g/dL Hct 22.3 L (37.0-47.0) % MCV 68.6 L (80-100) fl MCH 20.0 L (26-34) pg MCHC 29.1 L (32-36) g/dl RDW 18.3 H (11.5-14.5) % Plt Count 430 H (150-375) k/mm3 MPV 9.9 (7.4-10.4) fl Immature Gran % (Auto) 0.4 (0-0.5) % Neut % (Auto) 70.6 (45.5-73.1) % Lymph % (Auto) 23.3 (18.3-44.2) % [place] % (Auto) 4.7 (2.6-8.5) % Eos % (Auto) 0.6 (0-4.4) % Baso % (Auto) 0.4 (0.2-1.2) % Lymph # (Auto) 3.10 (0.9-3.2) K/mm3 [place] # (Auto) 0.6 (0.1-0.6) K/mm3 Eos # (Auto) 0.1 (0-0.3) K/mm3 Baso # (Auto) 0.1 (0.0-0.1) K/mm3 Abs Immat Gran (auto) 0.05 H (0.00-0.031) K/mm3 Absolute Neuts (auto) 9.4 H (1.3-6.7) K/mm3 Absolute Nucleated RBC 0.000 (0.0-0.012) K/mm3 Band Neutrophils % Not Reportable Nucleated RBC % 0.0 (0.0-0.2) % Platelet Estimate Adequate (Adequate) Large Platelets Present Giant Platelets Present Hypochromasia 2+ Microcytosis 2+ (NORMAL) Target Cells 1+ Schistocytes Rare Absolute Retic 0.07 (0.02-0.10) 10^6/uL Percent Retic 2.01 (0.7-4.3) % Immature Retic Fraction 34.5 H (3.0-15.9) % Retic Hgb Content 14.5 L (28.2-36.6) pg Sodium 139 (137-145) mmol/L Potassium 3.9 (3.4-5.0) mmol/L Chloride 103 (98-107) mmol/L Carbon Dioxide 25 (22-30) mmol/L Anion Gap 11 (4-12) mmol/L BUN 10 (7-17) mg/dL Creatinine 0.67 L (0.7-1.0) mg/dL Estim Creat Clear Calc Not Reportable Estimated GFR > 60 (59 - ) Glucose 101 (65-110) mg/dL Calcium 9.5 (8.4-10.2) mg/dL Magnesium 1.8 (1.6-2.3) mg/dL Iron 24 L (37-170) ug/dL TIBC 537 H (261-462) ug/dL % Saturation 4 L (20-50) % Transferrin 394 H (206-381) mg/dL Ferritin 3.21 L (6.24-137) ng/mL Total Bilirubin 0.2 (0.2-1.3) mg/dL AST 21 (14-36) U/L ALT 14 (6-35) U/L Alkaline Phosphatase 101 (38-126) U/L Lactate Dehydrogenase 183 (120-246) U/L Total Protein 8.0 (6.3-8.2) g/dL Albumin 4.7 (3.5-5.1) g/dL TSH (Reflex) 1.010 (0.465-4.68) uIU/mL Urine Color Light red H (Yellow) Urine Appearance Cloudy H (Clear) Urine pH 6.0 (5.0-9.0) Ur Specific [place] 1.012 (1.001-1.035) Urine Protein 3+ H (Negative) mg/dL Urine Glucose (UA) Negative (Negative) mg/dL Urine Ketones Negative (Negative) mg/dL Ur Blood (Man) 3+ H (Negative) Urine Nitrate Negative (Negative) Urine Bilirubin Negative (Negative) Urine Urobilinogen 0.2 (<2.0) mg/dL Add Ur Microanalysis Reviewed Leukocyte Esterase Rfl Negative (Negative) KAMI/UL Urine RBC >100 H (0-2) /hpf Urine WBC 21-50 H (0-3) /hpf Ur Squamous Epith Cells Moderate (Few) /hpf Urine Bacteria Rare /hpf Urine Casts 6-10 POC Urine HCG, Qual (Negative) Blood Type A Positive Antibody Screen Negative Crossmatch See Detail 03/15/25 Range/Units 23:09 WBC (4.5-10.0) K/mm3 RBC (4.2-5.4) M/mm3 Hgb (12.0-15.0) g/dL Hct (37.0-47.0) % MCV (80-100) fl MCH (26-34) pg MCHC (32-36) g/dl RDW (11.5-14.5) % Plt Count (150-375) k/mm3 MPV (7.4-10.4) fl Immature Gran % (Auto) (0-0.5) % Neut % (Auto) (45.5-73.1) % Lymph % (Auto) (18.3-44.2) % [place] % (Auto) (2.6-8.5) % Eos % (Auto) (0-4.4) % Baso % (Auto) (0.2-1.2) % Lymph # (Auto) (0.9-3.2) K/mm3 [place] # (Auto) (0.1-0.6) K/mm3 Eos # (Auto) (0-0.3) K/mm3 Baso # (Auto) (0.0-0.1) K/mm3 Abs Immat Gran (auto) (0.00-0.031) K/mm3 Absolute Neuts (auto) (1.3-6.7) K/mm3 Absolute Nucleated RBC (0.0-0.012) K/mm3 Band Neutrophils % Nucleated RBC % (0.0-0.2) % Platelet Estimate (Adequate) Large Platelets Giant Platelets Hypochromasia Microcytosis (NORMAL) Target Cells Schistocytes Absolute Retic (0.02-0.10) 10^6/uL Percent Retic (0.7-4.3) % Immature Retic Fraction (3.0-15.9) % Retic Hgb Content (28.2-36.6) pg Sodium (137-145) mmol/L Potassium (3.4-5.0) mmol/L Chloride (98-107) mmol/L Carbon Dioxide (22-30) mmol/L Anion Gap (4-12) mmol/L BUN (7-17) mg/dL Creatinine (0.7-1.0) mg/dL Estim Creat Clear Calc Estimated GFR (59 - ) Glucose (65-110) mg/dL Calcium (8.4-10.2) mg/dL Magnesium (1.6-2.3) mg/dL Iron (37-170) ug/dL TIBC (261-462) ug/dL % Saturation (20-50) % Transferrin (206-381) mg/dL Ferritin (6.24-137) ng/mL Total Bilirubin (0.2-1.3) mg/dL AST (14-36) U/L ALT (6-35) U/L Alkaline Phosphatase (38-126) U/L Lactate Dehydrogenase (120-246) U/L Total Protein (6.3-8.2) g/dL Albumin (3.5-5.1) g/dL TSH (Reflex) (0.465-4.68) uIU/mL Urine Color (Yellow) Urine Appearance (Clear) Urine pH (5.0-9.0) Ur Specific [place] (1.001-1.035) Urine Protein (Negative) mg/dL Urine Glucose (UA) (Negative) mg/dL Urine Ketones (Negative) mg/dL Ur Blood (Man) (Negative) Urine Nitrate (Negative) Urine Bilirubin (Negative) Urine Urobilinogen (<2.0) mg/dL Add Ur Microanalysis Leukocyte Esterase Rfl (Negative) KAMI/UL Urine RBC (0-2) /hpf Urine WBC (0-3) /hpf Ur Squamous Epith Cells (Few) /hpf Urine Bacteria /hpf Urine Casts POC Urine HCG, Qual Negative (Negative) Blood Type Antibody Screen Crossmatch <Tanner Mansfield MD - Last Filed: 03/16/25 03:41> Discharge Plan Discharge Clinical Impression: Dysfunctional uterine bleeding Anemia Qualifiers: Anemia type: unspecified type Qualified Code(s): D64.9 - Anemia, unspecified Iron deficiency anemia Qualifiers: Iron deficiency anemia type: unspecified iron deficiency Qualified Code(s): D 50.9 - Iron deficiency anemia, unspecified <Jo-Ann Pickett PA-C - Last Filed: 03/16/25 00:18> Patient Disposition: Still a Patient <Jo-Ann Pickett PA-C - Last Filed: 03/16/25 00:18> Condition: Stable <Jo-Ann Pickett PA-C - Last Filed: 03/16/25 00:18>
[2025-03-15] MEDS: SODIUM CHLORIDE 0.9% IV 1,000 ML 999 ML IV CONT (22:02)
[2025-03-15 22:03] LABS: Reticulocyte Hemoglobin Conten 14.5 pg (28.2-36.6); Reticulocyte Percent 2.01 % (0.7-4.3); Reticulocytes Absolute 0.07 10^6/uL (0.02-0.10)
[2025-03-15 22:06] LABS: Lactate Dehydrogenase 183 U/L (120-246)
[2025-03-15 22:07] LABS: Iron 24 ug/dL (37-170)
[2025-03-15 22:14] LABS: Transferrin 394 mg/dL (206-381)
[2025-03-15 22:18] LABS: Percent Iron Saturation 4 % (20-50)
[2025-03-15 22:29] LABS: Immature Reticulocyte Fraction 34.5 % (3.0-15.9)
--- NOTE | 2025-03-15 22:37 | PC.NURSE ---
patient aware that we need a urine sample and are waiting on the results from that. patient given moist towelette and urine cup and educated on how to use it. advised to call when she feels like she has to go to the bathroom so she can be unhooked from the monitor.
[2025-03-15 22:43] LABS: Ferritin 3.21 ng/mL (6.24-137)
--- NOTE | 2025-03-15 22:55 | PC.NURSE ---
This RN had pt sign consent form for blood transfusion
[2025-03-15] MEDS: SODIUM CHLORIDE 0.9% IV 250 ML 30 ML IV CONT (23:09)
[2025-03-15] MEDS: TUBING, BLOOD SET 1 EACH XX (23:09)
[2025-03-15 23:11] LABS: BEDSIDEPREGUCG Negative (Negative)
[2025-03-15 23:32] LABS: Add Urine Microscopic? YES; Appearance Urine Cloudy (Clear); Bacteria Urine Rare /hpf; Bilirubin Urine Negative (Negative); Blood Urine 3+ (Negative); Glucose Urine UA Negative (Negative); Ketones Urine Negative (Negative); Leukocyte Esterase Ur Negative LEU/UL (Negative); Need Manual Microscopic Reviewed; Nitrate Urine Negative (Negative); Protein Urine 3+ mg/dL (Negative); RBC Urine >100 /hpf (0-2); Specific Grav Ur 1.012 (1.001-1.035); Squamous Epithelial Cell Urine Moderate /hpf (Few); Urobilinogen Urine 0.2 mg/dL (<2.0); WBC Urine 21-50 /hpf (0-3)
[2025-03-15 23:33] LABS: Color Urine Light Red (Yellow)
[2025-03-16] VITALS (10 sets, daily range): BP systolic 97–115; BP diastolic 53–79; PULSE 84–112; RESP 14–18; TEMP 36.2–37.1; O2SAT 98–100
[2025-03-16] MEDS: TRANEXAMIC ACID 1,000MG/ISO100 1,000 MG/100 ML BAG 200 MG IVPB ×2 (00:18→09:33)
[2025-03-16] MEDS: SODIUM CHLORIDE 0.9% IV 1,000 ML 100 ML IV CONT (06:43)
--- NOTE | 2025-03-16 07:12 | PC.NURSE ---
Assumed care of this patient at 0615. Pt's last blood transfusion was completed prior to my arrival. Documentation for previous transfusion per Altaf Wilson RN.
[2025-03-16 09:17] LABS: Hematocrit 31.8 % (37.0-47.0); Hemoglobin 10.2 g/dL (12.0-15.0)
--- NOTE | 2025-03-16 09:33 | PM.IMHP ---
H&P: HPI History of Present Illness Date/Time: 03/16/25 09:33 Chief Complaint: vaginal hemorrhage Narrative: 24 yo Go here through ER with vaginal hemorrhage. She has been bleeding since first part of Dec. Came to ER due to dizziness. No syncope. Bleeding through many pads per day but unsure how many. Per ER vagina full of clots and blood. Given TXA and 3 units of blood. States bleeding has slowed down a lot. [facility] Past Medical History Medical History No active medical problems Social History Social History Smoking status: Never smoker Meds Home Medications and Allergies Home Medications ?Medication ?Instructions ?Recorded ?Confirmed ?Type No Home Medications 12/25/21 12/25/21 History Allergies Allergy/AdvReac Type Severity Reaction Status Date / Time No Known Allergies Allergy Verified 03/15/25 17:23 Vital Signs Vital Signs - 24 hr 03/15/25 17:32 03/15/25 21:53 03/15/25 22:00 Temperature 97.1 F L Pulse Rate 115 H 111 H 105 H Respiratory Rate 16 17 18 Blood Pressure 134/80 126/83 134/87 Pulse Oximetry 100 98 03/15/25 22:01 03/15/25 22:15 03/15/25 22:16 Temperature Pulse Rate 106 H 99 109 H Respiratory Rate 19 16 19 Blood Pressure 130/84 Pulse Oximetry 03/15/25 22:30 03/15/25 22:31 03/15/25 22:45 Temperature Pulse Rate 100 107 H 106 H Respiratory Rate 16 24 H 19 Blood Pressure 117/74 Pulse Oximetry 03/15/25 22:46 03/15/25 23:06 03/15/25 23:07 Temperature 98.7 F Pulse Rate 113 H 111 H 112 H Respiratory Rate 27 H 22 H 18 Blood Pressure 123/90 137/65 Pulse Oximetry 100 100 03/15/25 23:10 03/15/25 23:15 03/15/25 23:16 Temperature 98.7 F Pulse Rate 107 H 104 H 107 H Respiratory Rate 20 11 L 16 Blood Pressure 137/65 121/74 Pulse Oximetry 100 100 100 03/15/25 23:22 03/15/25 23:30 03/15/25 23:51 Temperature 98.7 F Pulse Rate 103 H 101 H 97 Respiratory Rate 22 H 9 L 15 Blood Pressure 121/74 Pulse Oximetry 100 100 100 03/16/25 00:43 03/16/25 02:20 03/16/25 02:35 Temperature 98.7 F 98.8 F 98.7 F Pulse Rate 97 107 H 100 Respiratory Rate 15 16 16 Blood Pressure 108/74 107/57 L 113/69 Pulse Oximetry 100 100 100 03/16/25 02:35 03/16/25 03:20 03/16/25 04:20 Temperature 98.2 F 98.3 F 98.2 F Pulse Rate 100 99 112 H Respiratory Rate 18 16 16 Blood Pressure 105/57 L 115/69 97/53 L Pulse Oximetry 100 100 100 03/16/25 05:00 03/16/25 07:06 03/16/25 07:20 Temperature 98.3 F 97.4 F L 97.2 F L Pulse Rate 92 88 84 Respiratory Rate 16 14 14 Blood Pressure 114/79 98/62 L 97/57 L Pulse Oximetry 100 100 100 03/16/25 08:20 03/16/25 08:57 Temperature 98.4 F 98.4 F Pulse Rate 93 87 Respiratory Rate 16 14 Blood Pressure 103/53 L 106/62 Pulse Oximetry 98 100 Exam Const: General: healthy appearing and alert Orientation/consciousness: patient oriented x3 Resp: Effort & Inspection: normal respiratory effort GI: GI Palp: Yes Soft to palpation, No Tenderness to palpation present (GI) and No Palpable mass present : External Female Exam: normal external appearance (Pelvic exam per ER PA) Speculum Exam - Vagina: vaginal bleeding (full of clots and blood) Speculum Exam - Cervix: Abnormal cervical discharge present bloody (could not clear blood to visualize) Bimanual exam- vagina & uterus: uterine size normal and consistency normal Bimanual Exam- Adnexa, other: normal adnexae and No adnexal tenderness Neuro: General: patient oriented x3 H&P: Results Labs Labs: Short CBC 03/15/25 03/16/25 Range/Units 20:00 09:11 WBC 13.3 H (4.5-10.0) K/mm3 Hgb 6.5 L* D 10.2 L D (12.0-15.0) g/dL Hct 22.3 L 31.8 L (37.0-47.0) % Plt Count 430 H (150-375) k/mm3 BMP 03/15/25 20:00 Sodium 139 Potassium 3.9 Chloride 103 Carbon Dioxide 25 BUN 10 Creatinine 0.67 L Glucose 101 Calcium 9.5 Liver Function 03/15/25 Range/Units 20:00 Total Bilirubin 0.2 (0.2-1.3) mg/dL AST 21 (14-36) U/L ALT 14 (6-35) U/L Alkaline Phosphatase 101 (38-126) U/L Albumin 4.7 (3.5-5.1) g/dL Urine 03/15/25 Range/Units 23:05 Urine Color Light red H (Yellow) Urine Appearance Cloudy H (Clear) Urine pH 6.0 (5.0-9.0) Ur Specific [place] 1.012 (1.001-1.035) Urine Protein 3+ H (Negative) mg/dL Urine Glucose (UA) Negative (Negative) mg/dL Assessment and Plan Assessment and plan (1) Vaginal bleeding: Code(s): N93.9 - Abnormal uterine and vaginal bleeding, unspecified Status: Acute Assessment and Plan: Has decreased significant. Will give second dose of TXA and DC home. Plans iron TID with colace Plans Xulane patch to start today. Reviewed proper use and risks.
--- NOTE | 2025-03-20 13:05 | P.PNOB_ITS ---
OB - Triage/Final Diagnosis Visit Information Reason for evaluation: other (vaginal hemorrhage) Comments/Additional reasons for admission: I have assessed the risk for this patient, Brittany Arroyo, and determined that she would benefit from observation care. Evaluation Laboratory results: Laboratory Tests 03/15/25 03/15/25 03/15/25 20:00 21:51 23:05 WBC 13.3 H RBC 3.25 L Hgb 6.5 L* D Hct 22.3 L MCV 68.6 L MCH 20.0 L MCHC 29.1 L RDW 18.3 H Plt Count 430 H MPV 9.9 Immature Gran % (Auto) 0.4 Neut % (Auto) 70.6 Lymph % (Auto) 23.3 [place] % (Auto) 4.7 Eos % (Auto) 0.6 Baso % (Auto) 0.4 Lymph # (Auto) 3.10 [place] # (Auto) 0.6 Eos # (Auto) 0.1 Baso # (Auto) 0.1 Abs Immat Gran (auto) 0.05 H Absolute Neuts (auto) 9.4 H Absolute Nucleated RBC 0.000 Band Neutrophils % Not Reportable Nucleated RBC % 0.0 Platelet Estimate Adequate Large Platelets Present Giant Platelets Present Hypochromasia 2+ Microcytosis 2+ Target Cells 1+ Schistocytes Rare Absolute Retic 0.07 Percent Retic 2.01 Immature Retic Fraction 34.5 H Retic Hgb Content 14.5 L Sodium 139 Potassium 3.9 Chloride 103 Carbon Dioxide 25 Anion Gap 11 BUN 10 Creatinine 0.67 L Estim Creat Clear Calc Not Reportable Estimated GFR > 60 Glucose 101 Calcium 9.5 Magnesium 1.8 Iron 24 L TIBC 537 H % Saturation 4 L Transferrin 394 H Ferritin 3.21 L Total Bilirubin 0.2 AST 21 ALT 14 Alkaline Phosphatase 101 Lactate Dehydrogenase 183 Total Protein 8.0 Albumin 4.7 TSH (Reflex) 1.010 Urine Color Light red H Urine Appearance Cloudy H Urine pH 6.0 Ur Specific [place] 1.012 Urine Protein 3+ H Urine Glucose (UA) Negative Urine Ketones Negative Ur Blood (Man) 3+ H Urine Nitrate Negative Urine Bilirubin Negative Urine Urobilinogen 0.2 Add Ur Microanalysis Reviewed Leukocyte Esterase Rfl Negative Urine RBC >100 H Urine WBC 21-50 H Ur Squamous Epith Cells Moderate Urine Bacteria Rare Urine Casts 6-10 POC Urine HCG, Qual Blood Type A Positive Antibody Screen Negative Crossmatch See Detail 03/15/25 03/16/25 23:09 09:11 WBC RBC Hgb 10.2 L D Hct 31.8 L MCV MCH MCHC RDW Plt Count MPV Immature Gran % (Auto) Neut % (Auto) Lymph % (Auto) [place] % (Auto) Eos % (Auto) Baso % (Auto) Lymph # (Auto) [place] # (Auto) Eos # (Auto) Baso # (Auto) Abs Immat Gran (auto) Absolute Neuts (auto) Absolute Nucleated RBC Band Neutrophils % Nucleated RBC % Platelet Estimate Large Platelets Giant Platelets Hypochromasia Microcytosis Target Cells Schistocytes Absolute Retic Percent Retic Immature Retic Fraction Retic Hgb Content Sodium Potassium Chloride Carbon Dioxide Anion Gap BUN Creatinine Estim Creat Clear Calc Estimated GFR Glucose Calcium Magnesium Iron TIBC % Saturation Transferrin Ferritin Total Bilirubin AST ALT Alkaline Phosphatase Lactate Dehydrogenase Total Protein Albumin TSH (Reflex) Urine Color Urine Appearance Urine pH Ur Specific [place] Urine Protein Urine Glucose (UA) Urine Ketones Ur Blood (Man) Urine Nitrate Urine Bilirubin Urine Urobilinogen Add Ur Microanalysis Leukocyte Esterase Rfl Urine RBC Urine WBC Ur Squamous Epith Cells Urine Bacteria Urine Casts POC Urine HCG, Qual Negative Blood Type Antibody Screen Crossmatch
== END 2025-03-16 10:40 | disposition home or self-care (01) ==
LOC: ANHED 23:33 → ANHOBPP 03-16 00:15
PROVIDERS: Emergency Medicine; Admitting Provider Obstetrics & Gynecology Gynecology; Emergency Provider Physician Assistant; Visit Provider Obstetrics & Gynecology Gynecology
DX: N93.9 Abnormal uterine and vaginal bleeding, unspecified (principal); D50.9 Iron deficiency anemia, unspecified
CPT/HCPCS: 36415; 36430; 80053; 81001; 81025; 82728; 83540; 83550; 83615; 83735; 84443; 84466; 85014; 85018; 85025; 85046; 86850; 86900; 86901; 86923; 96361; 96365; 96376; 99285; G0378; J7030; J7050; P9016